=== PATIENT | female | born 1935 | race Caucasian/White ===

== ENCOUNTER 2016-03-10 16:34 | Inpatient (IN) | payer MEDICARE ==
--- NOTE | 2016-03-10 16:50 | ED Physician Chart ---
Chief Complaint/HPI - Patient Information Date Seen:: 03/10/16 Time Seen:: 16:45 Chief Complaint:: weakness History of Present Illness:: [place]. EMS noted low BP on arrival that improved when pt was given 250ml NS bolus IV. pt now feeling better. no known recent illness. bp was 90 systoloic...now 120/80s pt cant recall events well...was complaininig of feeling weak and dizzy at the time but not now. pt w dementia hx Historian:: Patient, EMS Review:: Transfer documents Reviewed Review of Systems - Review of Systems General/Constitutional: No fever, No chills, No weight loss, Weakness, No diaphoresis, No edema, No loss of appetite Skin: No skin lesions, No rash, No bruising Head: No headache, No light-headedness Eyes: No loss of vision, No pain, No diplopia ENT: No earache, No nasal drainage, No sore throat, No tinnitus Neck: No neck pain, No swelling, No thyromegaly, No stiffness, No mass noted Cardio Vascular: No chest pain, No palpitations, No PND, No orthopnea, No edema Pulmonary: No SOB, No cough, No sputum, No wheezing GI: No nausea, No vomiting, No diarrhea, No pain, No melena, No hematochezia, No constipation, No hematemesis G/U: No dysuria, No frequency, No hematuria Musculoskeletal: No bone or joint pain, No back pain, No muscle pain Endocrine: No polyuria, No polydipsia Psychiatric: No prior psych history, No depression, No anxiety, No suicidal ideation Hematopoietic: No bruising, No lymphadenopathy Allergic/Immuno: No urticaria, No angioedema Neurological: No syncope, No focal symptoms, No weakness, No paresthesia, No headache, No seizure, No dizziness, No confusion, No vertigo Past Medical History - Past Medical History Past Medical History: HTN, Thyroid disorder, Dementia Social History: Care Facility Medication: Reviewed Family Medical History - Family Member Mother History Unknown: Yes Labs/Radiology/EKG Results - Lab Results Results: Laboratory Tests 03/10/16 03/10/16 03/10/16 17:07 17:07 17:07 WBC 10.2 RBC 4.21 Hgb 12.7 Hct 37.9 MCV 90.1 MCH 30.3 MCHC Differential 33.6 RDW 13.6 Plt Count 189 MPV 8.1 Neutrophils % 67.5 Lymphocytes % 26.2 Monocytes % 5.4 Eosinophils % 0.6 Basophils % 0.3 Sodium 137 Potassium 4.2 Chloride 103 Carbon Dioxide 26.8 Anion Gap 11.4 BUN 28 H Creatinine 1.2 Est GFR ( Amer) TNP Est GFR (Non-Af Amer) TNP BUN/Creatinine Ratio 23.3 Glucose 123 H Calcium 9.9 Total Bilirubin 0.9 AST 19 ALT 10 Alkaline Phosphatase 59 Troponin I 0.02 Total Protein 7.6 Albumin 3.7 Globulin 3.9 Albumin/Globulin Ratio 1.0 - Radiology Results Results: cxr ca aorta, nad - EKG Interpretations EKG Time:: 17:20 Rhythm: nsr 67 [place]: -61 Rate: 67 Comments:: atrial flutter w 4:1conduction ED Septic Shock - . Is Septic Shock (SBP<90, OR Lactate>4 mmol\L) present?: No Reassessment (Disposition) - Reassessment Reassessment Condition:: Unchanged - Diagnosis Diagnosis:: 1 near syncope / hypotensive episode of uncertain etiology 2 atrial flutter w 4:1 conduction - Patient Disposition Admitted to:: Telemetry Condition at Disposition:: Improved
[2016-03-10 17:16] LABS: % BASOPHILS 0.3 % (0.0-2.0); % EOSINOPHILS 0.6 % (0.0-5.0); % LYMPHOCYTES 26.2 % (20.0-50.0); % MONOCYTES 5.4 % (2.0-10.0); % NEUTROPHILS 67.5 % (40.0-80.0); HEMATOCRIT 37.9 % (35.0-45.0); HEMOGLOBIN 12.7 gm/dL (11.7-16.1); MEAN CELL VOLUME 90.1 fl (81-100); MEAN CORPUSCULAR HEMOGLOBIN 30.3 pg (27.0-31.0); MEAN CORPUSCULAR HGB CONC 33.6 pg (28.0-36.0); MEAN PLATELET VOLUME 8.1 fl; NEUTROPHILE ABSOLUTE 6.8 Th/cmm (1.8-8.0); PLATELET COUNT 189 Th/cmm (150-400); RED BLOOD COUNT 4.21 Mil/cmm (3.80-5.20); RED CELL DISTRIBUTION WIDTH 13.6 % (11.5-20.0); WHITE BLOOD COUNT 10.2 Th/cmm (4.8-10.8)
[2016-03-10 17:29] LABS: ALKALINE PHOSPHATASE 59 U/L (34-104); ANION GAP 11.4 (7.0-16.0); BILIRUBIN,TOTAL 0.9 mg/dL (0.3-1.0); BUN - UREA NITROGEN 28 mg/dL (7-25); BUN/CREATININE RATIO 23.3; CALCIUM SERUM 9.9 mg/dL (8.6-10.3); CARBON DIOXIDE 26.8 mEq/L (21.0-31.0); CHLORIDE 103 mEq/L (98-107); CREATININE - SERUM 1.2 mg/dL (0.6-1.2); GLUCOSE 123 mg/dL (70-105); POTASSIUM SERUM 4.2 mEq/L (3.5-5.1); SGOT 19 U/L (13-39); SGPT/ALT 10 U/L (7-52); SODIUM SERUM 137 mEq/L (136-145)
[2016-03-10] MEDS ORDERED: Fleet Enema 135 mL RC PRN (20:34)
[2016-03-10] MEDS ORDERED: Sodium Chloride 0.45% 1,000 ML IV SCH (20:45)
[2016-03-11 05:26] LABS: HEMATOCRIT 35.5 % (35.0-45.0); MEAN CELL VOLUME 90.6 fl (81-100); MEAN CORPUSCULAR HEMOGLOBIN 30.7 pg (27.0-31.0); MEAN CORPUSCULAR HGB CONC 33.9 pg (28.0-36.0); MEAN PLATELET VOLUME 8.6 fl; PLATELET COUNT 192 Th/cmm (150-400); RED BLOOD COUNT 3.92 Mil/cmm (3.80-5.20); RED CELL DISTRIBUTION WIDTH 13.5 % (11.5-20.0); WHITE BLOOD COUNT 11.7 Th/cmm (4.8-10.8)
[2016-03-11 05:49] LABS: ALKALINE PHOSPHATASE 63 U/L (34-104); ANION GAP 4.7 (7.0-16.0); BILIRUBIN,TOTAL 0.8 mg/dL (0.3-1.0); BUN - UREA NITROGEN 28 mg/dL (7-25); BUN/CREATININE RATIO 31.1; CALCIUM SERUM 9.5 mg/dL (8.6-10.3); CARBON DIOXIDE 30.2 mEq/L (21.0-31.0); CHLORIDE 108 mEq/L (98-107); CREATININE - SERUM 0.9 mg/dL (0.6-1.2); GLUCOSE 94 mg/dL (70-105); POTASSIUM SERUM 3.9 mEq/L (3.5-5.1); SGOT 19 U/L (13-39); SGPT/ALT 9 U/L (7-52); SODIUM SERUM 139 mEq/L (136-145)
[2016-03-11 08:15] LABS: EOSINOPHIL 2 % (0-5); NEUTROPHILS 42 % (40-80); PLATELET ESTIMATE ADEQUATE (NORMAL); PLATELET MORPHOLOGY NORMAL (NORMAL); TOTAL CELLS COUNTED 100
[2016-03-11] MEDS: Levothyroxine 0.075 Mg Tab PO SCH (08:23)
[2016-03-11] MEDS ORDERED: Aspirin 81mg Chewable Tab PO SCH ×2 (09:00)
--- NOTE | 2016-03-11 11:41 | Diagnostic Imaging Report ---
Portable chest x-ray HISTORY: Shortness of breath The heart is enlarged. Atherosclerotic calcination seen throughout the aorta. No acute focal pulmonary processes. Suggestion of old fracture involving the posterior aspect of the left seventh rib. Degenerative changes noted throughout the spine. IMPRESSION: 1. No acute abnormalities 2. Cardiomegaly with at the body vascular changes
--- NOTE | 2016-03-11 13:52 | History & Physical ---
PATIENT IDENTIFICATION: An 81-year-old female. CHIEF COMPLAINT: "Who are you." HISTORY OF PRESENT ILLNESS: This 81-year-old female who resides at [facility], has history of hypothyroidism and dementia, brought in to the Emergency Room by paramedics after patient had an episode of hypotension. The patient was evaluated by Emergency Room MD and noted to have 4:1 block with atrial flutter. The patient has been admitted. The patient does not provide a meaningful history. PAST MEDICAL HISTORY: Hypothyroidism, hypertension and seizure disorder. MEDICATIONS AT HOME: List has been reviewed and reconciled. ALLERGIES: The patient is not allergic to any medications. SOCIAL HISTORY: She lives in [facility]. The patient has no smoking cigarette, alcohol or drug use. FAMILY MEDICAL HISTORY: Unavailable. REVIEW OF SYSTEMS: Unable to get meaningful history. PHYSICAL EXAMINATION: GENERAL: Alert, awake, lying in the bed without any acute distress. VITAL SIGNS: Temperature 98.6, pulse 74, respiratory rate 18, blood pressure 130/70. SKIN: Warm to touch. HEENT: Normocephalic, atraumatic. Extraocular muscles are intact. Tongue was pink and coated. Poor dentition noted. NECK: Supple, no JVD, no hepatojugular reflux. No lymphadenopathy, thyromegaly or carotid bruit. HEART: Both heart sounds and regular. No S3. Grade 2/6 systolic murmur noted. CHEST: Lung equal in expansion, no wheezing, no crackles. ABDOMEN: Soft. No guarding, no rigidity. Bowel sounds are present. No palpable mass. EXTREMITIES: No edema. NEUROLOGIC: Remarkable for ____ dementia with mini mental score of ____/30. CLINICAL IMPRESSION: 1. Episode of hypotension, has resolved. Etiology needed to be determined, suspect patient may have volume depletion. 2. Abnormal EKG. Upon reviewing the EKG, I do not see atrial flutter, ____ this patient has premature atrial contractions. 3. Dementia. 4. History of hypertension. 5. Hypothyroidism. 6. Degenerative joint disease. PLAN: The patient has been admitted by me overnight. Cardiology consultation requested. The patient has remained hemodynamically stable. We will have Cardiology evaluation for cardiac enzymes. Meanwhile, we will get 2D echocardiogram. Cardiac enzymes will be obtained as well. Appropriate home medicine reconciliated and we will monitor the cardiac rhythm. The patient's care plan has been reviewed and discussed. NELSY: 03/11/2016 08:48 JOB# [id number]
[2016-03-11] MEDS ORDERED: VTE Chemical Prophylaxis Screen/Admission MC PRN (14:15)
[2016-03-12] MEDS: Levothyroxine 0.075 Mg Tab PO SCH (06:33)
--- NOTE | 2016-03-12 21:28 | Cardiology ---
Patient of Dr. Vieira. M-MODE ECHOCARDIOGRAM: Mitral Valve: Anterior leaflet of the mitral valve shows normal excursion, EF velocity. Posterior leaflet of the mitral valve shows normal excursion. Left ventricular posterior wall shows increased thickness, normal excursion. Interventricular septum shows increased thickness, normal excursion, hypertrophy of the left ventricle, ejection fraction 55%. Left atrium normal. Aortic root shows normal dimension, normal excursion of aortic leaflets. CONCLUSION: Hypertrophy of the left ventricle, ejection fraction 55%. 2D ECHO: Long axis view showed normal-sized left ventricle with hypertrophy of the left ventricle. Left atrium normal. Aortic root shows normal dimension, normal excursion of aortic leaflets. Short axis view of mitral valve normal. Short axis view of aortic valve normal. Apical four-chamber view showed normal-sized left ventricle, left atrium, right ventricle, right atrium, tricuspid and mitral valve. Ejection fraction 55%. CONCLUSION: Hypertrophy of the left ventricle, ejection fraction 55%. Doppler study shows prominent A wave consistent with poor compliance of left ventricle, trace mitral regurgitation, tricuspid regurgitation, aortic regurgitation. [facility]# [id number]
--- NOTE | 2016-03-12 21:30 | Discharge Summary ---
PRINCIPAL DIAGNOSES: 1.Acute onset of hypertension, resolved after IV hydration, suspect probably volume depletion. 2.Paroxysmal atrial fibrillation. 3.Alzheimer's type dementia. 4.Hypothyroidism. 5.High risk for fall. 6.Degenerative joint disease. 7.Psychotic disorder. BRIEF STATEMENT FOR THE REASON FOR ADMISSION: An 81-year-old female who resides at [facility], presented to Emergency Room after the patient was noted to have hypotension and resolved after giving 250 mL of normal saline by paramedics on the floor. The patient was evaluated and subsequently admitted to the hospital. Please refer to my dictated H and P for further information. HOSPITAL COURSE: The patient was admitted by tx overnight. The patient was seen by shovel oiler. Cardiac enzymes were negative. A 2D echocardiogram remarkable for LV function of 55% with LVH. The patient was placed on his usual medication as prescribed. Cardiac monitoring ____. There was no arrhythmia reported. Discussion with the shovel oiler about the discharge planning as well as anticoagulation. As per patient, ____ has dementia with high risk for extreme fall. The patient should not be anticoagulated with factor X inhibitors. It was recommended that the patient should be placed on aspirin. Her rate was controlled during the stay in the hospital. No rate control medications were recommended. The patient was discharged back to [facility] on 03/12/2016 with continuation of same medications. The patient was seen by physical therapy and occupational therapy during the stay and the patient was ambulated as well. Care plan has been reviewed and discharge instructions were discussed with staff. JOB# [id number]
--- NOTE | 2016-03-15 16:03 | Consultation ---
The patient of Dr. Vieira. HISTORY AND PHYSICAL: This is an 81-year-old female patient who had developed hypotension, weakness, and tiredness. Following this, the patient was transferred to the Emergency Room. The patient had frequent PACs and episode of atrial fibrillation and hence Cardiology consult was requested. PAST MEDICAL HISTORY: The patient has a history of dementia, hypertension, hypothyroid, degenerative joint disease, and grand mal seizures. FAMILY HISTORY: Unremarkable. SOCIAL HISTORY: No history of smoking or alcohol abuse. ALLERGIES: None. PHYSICAL EXAMINATION: VITAL SIGNS: Blood pressure 130/80, pulse 110, and respirations 28. HEAD: Normocephalic. No lumps or bumps. EYES: Pupils are equal and reactive to light. Fundi show AV nicking, sclerae white, and conjunctivae pink. NECK: Carotid 2+. Normal upstroke. JVD flat. Thyroid not palpable. Lymph nodes not palpable. CHEST: Shows increased AP diameter. No kyphosis or scoliosis. LUNGS: Bilateral bronchovesicular breath sounds. HEART: PMI in fifth intercostal space with lateral to midclavicular line. S1, S2. No S3, S4, systolic murmur, grade 2/6, lower left sternal border without radiation. ABDOMEN: Soft. Liver and spleen not palpable. No organomegaly. Bowel sounds active. NEUROLOGIC: Unremarkable. EXTREMITIES: Peripheral pulses 2+. No pedal edema. CLINICAL IMPRESSION: 1. Hypotension. We will give fluid challenge. 2. Paroxysmal atrial fibrillation. 3. Syncope. 4. Dementia. 5. Grand mal seizures. PLAN: Admit the patient. We will continue to monitor the patient. Get echocardiogram and monitor the patient on telemetry bed. JOB# [id number]
== END 2016-03-12 13:00 | DRG 641 ==
LOC: ER 16:34 → TELE 20:55
PROVIDERS: ADMIT Internal Medicine; ATTEND Internal Medicine
DX: E86.9 Volume depletion, unspecified (principal); I95.9 Hypotension, unspecified; I48.0 Paroxysmal atrial fibrillation; G40.909 Epilepsy, unspecified, not intractable, without status epilepticus; G30.9 Alzheimer's disease, unspecified; F02.80 Dementia in other diseases classified elsewhere, unspecified severity, without behavioral disturbance, psychotic disturbance, mood disturbance, and anxiety; I49.1 Atrial premature depolarization; I10 Essential (primary) hypertension; E03.9 Hypothyroidism, unspecified; M19.90 Unspecified osteoarthritis, unspecified site; F29 Unspecified psychosis not due to a substance or known physiological condition; Z91.81 History of falling
CPT/HCPCS: 36415-UA; 71010-TC; 80053-TC; 84484-TC; 85007-TC; 85025-TC; 85027-TC; 93005; 97530; J1644; X3904; X3920; Z7610